=== PATIENT | male | born 1960 | race African-American/Black ===

== ENCOUNTER 2020-09-06 18:26 | Emergency (ER) | payer BC, SELFPAY ==
--- OUTSIDE RECORDS SUMMARY | 2020-09-06 18:28 | XMS REPORT | Continuity of Care Document ---
:1960 Author Organization [facility] t Address [address] [place] [address] Care Team Providers Name Role Phone Unavailable Unavailable Unavailable Problems This patient has no known problems. Allergies, Adverse Reactions, Alerts This patient has no known allergies or adverse reactions. Medications This patient has no known medications. Procedures This patient has no known procedures. Encounters Start End Encounter Admission Attending Care Care Encounter Source Date/Time Date/Time Type Type Clinicians Facility Department ID 2017-04-21 2017-04-21 [facility] [id number] [address] [place] [address] 00:00:00 00:00:00 [facility] Results This patient has no known results.
[2020-09-06] MEDS ORDERED: TETANUS & DIPHTHERIA TOX,ADULT 0.5 ML VIAL ONE (20:30)
[2020-09-06] MEDS ORDERED: LIDOCAINE 1% MPF 5 ML VIAL ONE (20:31)
--- NOTE | 2020-09-06 20:49 | EDPHYS ---
Physician Documentation [facility] Name: Alejandro Cardenas Jr Age: 60 yrs Sex: Male : 1960 Arrival Date: 09/06/2020 Time: 18:27 Bed 25 Private MD: ED Physician Prateek Cutler HPI: 09/06 20:25 This 60 yrs old Black Male presents to ER via Ambulatory with complaints of Laceration kb To Hand. 20:25 The patient has a laceration related to: cooking, occurred at home, and there are no kb complicating factors. The injury was accidental. The laceration(s) is(are) located on the heel of right hand. Onset: The symptoms/episode began/occurred just prior to arrival. Associated signs and symptoms: The patient has no apparent associated signs or symptoms. The patient has not experienced similar symptoms in the past. The patient has not recently seen a physician. Pt states he accidentally cut his hand on a knife while cooking. Full ROM of hand and all digits. No numbness, tingling. Historical: - Allergies: 18:54 No Known Allergies; ca1 - Home Meds: 18:54 None [Active]; ca1 - PMHx: 18:54 None; ca1 - PSHx: 18:54 Hernia repair; ca1 - Immunization history:: Last tetanus immunization: unknown, Flu vaccine is not up to date. - Social history:: Smoking status: Patient denies any tobacco usage or history of. ROS: 20:25 Constitutional: Negative for fever, chills, and weight loss, MS/Extremity: Negative for kb injury and deformity, Neuro: Negative for headache, weakness, numbness, tingling, and seizure. 20:25 Skin: Positive for laceration(s), of the heel of right hand. Exam: 20:24 Constitutional: This is a well developed, well nourished patient who is awake, alert, kb and in no acute distress. Head/Face: Normocephalic, atraumatic. MS/ Extremity: Pulses equal, no cyanosis. Neurovascular intact. Full, normal range of motion. 20:24 Respiratory: the patient does not display signs of respiratory distress, Respirations: normal. 20:24 Skin: injury, laceration(s), the wound is approximately 3 cm(s), of the heel of right hand, that can be described as clean, no foreign body, linear, without bleeding. Vital Signs: 18:52 BP 150 / 97; Pulse 92; Resp 16 S; Temp 97.7(TE); Pulse Ox 100% on R/A; Weight 76.2 kg ca1 (R); Height 5 ft. 11 in. (180.34 cm) (R); Pain 0/10; 18:52 Body Mass Index 23.43 (76.20 kg, 180.34 cm) ca1 Laceration: 20:48 Wound Repair of 3cm ( 1.2in ) subcutaneous laceration to heel of right hand. Linear kb shaped.. Distal neuro/vascular/tendon intact. Anesthesia: Wound infiltrated with 2 mls of 1% lidocaine. Wound prep: Extensive cleansing with hibiclenz by me, Wound irrigation with saline by me. Skin closed with 5 4-0 Prolene using simple sutures and sterile technique. Dressed with Neosporin, bandaid. Patient tolerated well. MDM: 20:03 Patient medically screened. kb 20:24 Data reviewed: vital signs, nurses notes. Data interpreted: Pulse oximetry: on room air kb is 100 %. Interpretation: normal. Counseling: I had a detailed discussion with the patient and/or guardian regarding: the historical points, exam findings, and any diagnostic results supporting the discharge/admit diagnosis, the need for outpatient follow up, a family practitioner, to return to the emergency department if symptoms worsen or persist or if there are any questions or concerns that arise at home. 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 Exp: ca1 10/28/2021. Lot #: [id number]. } Route: IM; Site: left deltoid; 20:54 Follow up: Response: No adverse reaction zb 20:55 Drug: Lidocaine (1 %) 1 vials {Note: administered by ECP .} Volume: 5 ml; Route: zb Infiltration; Disposition: 09/07 06:44 Co-signature as Attending Physician, Prateek Cutler MD I agree with the assessment and heather plan of care. Disposition: 09/06/20 20:49 Discharged to Home. Impression: Laceration without foreign body of right hand. - Condition is Stable. - Discharge Instructions: Laceration Care, Adult, [id number]. - Medication Reconciliation Form, Thank You Letter, Antibiotic Education, Prescription Opioid Use form. - Follow up: Emergency Department; When: As needed; Reason: Worsening of condition. Follow up: Private Physician; When: 2 - 3 days; Reason: Recheck today's complaints, Continuance of care, Re-evaluation by your physician. Signatures: Padmini Marvin, RED CAP-C RED CAP-Prateek Palmer MD MD cha Acob, Lucia, RN Dawn Cannon RN RN zb Corrections: (The following items were deleted from the chart) 09/06 20:48 20:24 Skin: injury, laceration(s), the wound is approximately 1.5 cm(s), of the heel of kb right hand, that can be described as clean, no foreign body, linear, without bleeding, kb 21:08 20:49 09/06/2020 20:49 Discharged to Home. Impression: Laceration without foreign body zb of right hand. Condition is Stable. Discharge Instructions: Laceration Care, Adult, [id number]. Forms are Medication Reconciliation Form, Thank You Letter, Antibiotic Education, Prescription Opioid Use. Follow up: Emergency Department; When: As needed; Reason: Worsening of condition. Follow up: Private Physician; When: 2 - 3 days; Reason: Recheck today's complaints, Continuance of care, Re-evaluation by your physician. kb
--- NOTE | 2020-09-06 20:49 | ER ---
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 Bleeding ca1 controlled. Coronavirus screen: Client denies travel out of the [place] in the last 14 days. At this time, the client does not indicate any symptoms associated with coronavirus-19. Ebola Screen: Patient negative for fever greater than or equal to 101.5 degrees Fahrenheit, and additional compatible Ebola Virus Disease symptoms Patient denies exposure to infectious person. Patient denies travel to an Ebola-affected area in the 21 days before illness onset. No symptoms or risks identified at this time. Complicating Factors: There are no complicating factors for this patient. Initial Sepsis Screen: Does the patient meet any 2 criteria? No. Patient's initial sepsis screen is negative. Does the patient have a suspected source of infection? No. Patient's initial sepsis screen is negative. Risk Assessment: Do you want to hurt yourself or someone else? Patient reports no desire to harm self or others. Onset of symptoms was September 06, 2020. 18:52 Method Of Arrival: Ambulatory ca1 18:52 Acuity: JAIME 4 ca1 Triage Assessment: 21:00 General: Appears in no apparent distress. Behavior is calm. zb Historical: - Allergies: 18:54 No Known Allergies; ca1 - Home Meds: 18:54 None [Active]; ca1 - PMHx: 18:54 None; ca1 - PSHx: 18:54 Hernia repair; ca1 - Immunization history:: Last tetanus immunization: unknown, Flu vaccine is not up to date. - Social history:: Smoking status: Patient denies any tobacco usage or history of. Screenin:12 Abuse screen: Denies threats or abuse. Denies injuries from another. Nutritional zb screening: No deficits noted. Tuberculosis screening: No symptoms or risk factors identified. Fall Risk None identified. Assessment: 21:00 General: Appears in no apparent distress. uncomfortable, Behavior is calm, cooperative, zb appropriate for age. Pain: Complains of pain in right hand and heel of right hand Pain currently is 3 out of 10 on a pain scale. Quality of pain is described as aching, soreness. Neuro: Level of Consciousness is awake, alert, obeys commands, Oriented to person, place, time, situation. Cardiovascular: Capillary refill < 3 seconds Patient's skin is warm and dry. Respiratory: Airway is patent Respiratory effort is even, unlabored, Respiratory pattern is regular, symmetrical. GI: No signs and/or symptoms were reported involving the gastrointestinal system. : No signs and/or symptoms were reported regarding the genitourinary system. EENT: No signs and/or symptoms were reported regarding the EENT system. Derm: Skin is healthy with good turgor, Skin is dry, Skin is normal, Skin temperature is warm. Musculoskeletal: Swelling present in heel of right hand. Injury Description: Laceration sustained to right hand and heel of right hand is clean, was sustained 4-6 hours ago. is bleeding a small amount. Vital Signs: 18:52 BP 150 / 97; Pulse 92; Resp 16 S; Temp 97.7(TE); Pulse Ox 100% on R/A; Weight 76.2 kg ca1 (R); Height 5 ft. 11 in. (180.34 cm) (R); Pain 0/10; 18:52 Body Mass Index 23.43 (76.20 kg, 180.34 cm) ca1 ED Course: 18:27 Patient arrived in ED. as 18:54 Triage completed. ca1 18:54 Arm band placed on right wrist. ca1 20:03 Padmini Marvin FNP-C [facility]. kb 20:03 Prateek Cutler MD is Attending Physician. kb 20:54 Dawn Avendano RN is Primary Nurse. zb 21:00 Patient has correct armband on for positive identification. Pulse ox on. NIBP on. Door zb closed. Noise minimized. 21:00 No provider procedures requiring assistance completed. Patient did not have IV access zb during this emergency room visit. 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 Exp: ca1 10/28/2021. Lot #: [id number]. } Route: IM; Site: left deltoid; 20:54 Follow up: Response: No adverse reaction zb 20:55 Drug: Lidocaine (1 %) 1 vials {Note: administered by ECP .} Volume: 5 ml; Route: zb Infiltration; Outcome: 20:49 Discharge ordered by MD. santiago 21:00 Discharged to home ambulatory. zb 21:00 Condition: stable 21:00 Discharge instructions given to patient, Instructed on discharge instructions, follow up and referral plans. medication usage. 21:08 Patient left the ED. zb Signatures: Padmini Marvin, IRAM HOANG-Mallika Villanueva Cheryl, RN RN Dawn Mahajan RN RN zb
[2020-09-06 22:50] VITALS: BP 150/97; TEMP 97.7; O2SAT 100
== END 2020-09-06 21:08 | disposition home or self-care (01) ==
LOC: ER 18:26
PROC: 0HQFXZZ Repair Right Hand Skin, External Approach (ICD-10-PCS; principal; 2020-09-06)
DX: S61.411A Laceration without foreign body of right hand, initial encounter (principal); W26.0XXA Contact with knife, initial encounter; Y93.G3 Activity, cooking and baking; Y92.000 Kitchen of unspecified non-institutional (private) residence as the place of occurrence of the external cause; Z23 Encounter for immunization
CPT/HCPCS: 90471; 90714; 99283